=== PATIENT | female | born 1935 | race Caucasian/White ===

== ENCOUNTER 2017-07-09 08:18 | Emergency (ER) | payer MEDICARE ==
[~2017-07-09] VITALS: Ht 157.5 cm; Wt 46.3 kg
[~2017-07-09 08:18] MED LIST: ALBUTEROL S2.5 MG/.5; ALBUTEROL S2.5 MG/.5 IN; ALTACE1.25 MG OR; AMOXICILLIN/CL875 MG PO; ANTIVERT12.5 MG PO; AUGMENTIN875TAB PO; BROVANA15 MCG IN; CARAFATE1 GM PO; CIPRO500 MG PO; CYANOCOBALAM1000 MCG IJ; CYANOCOBALAM1000 MCG IM; DOCUSATE CAL240 MG PO; FLONASE NASAL50 MCG; FLORASTOR250 M1 PO; FLUARIX QUADRIV1 IN1 IM; FLUZONE SPLT1 M1 IM; FOLIC ACID1 MG PO; FOSAMAX70 MG OR; GABAPENTIN100 MG PO; IPRATROPIU0.5 MG/3 M NEB; KEFLEX500 MG PO; LEVOTHYROXIN100 MCG PO; LEVOTHYROXIN75 MCG PO; LEVOTHYROXIN88 MC1 PO; LEVOXYL100 MCG OR; LEVOXYL88 MCG OR; MEDDOSEPAK PO; MIRALAX3350 NF PO; MULTI-VIT/FE PO; OMEPRAZOLE20 MG PO; PREDNISONE10 MG PO; PRILOSEC40 MG PO; PROAIR HFA IN; QVAR80 MCG IN; ROCEPHIN 1 GM1 GM IM; SERTRALINE50 MG PO; SOLU-MEDROL125 MG IM; SYMBICORT INH; SYMBICORT1 AE1 IN; SYMBICORT1 AER IN; SYNTHROID88 MCG OR; XANAX0.25 MG PO; ZITHROMAX500 MG PO; ZOLOFT20 MG/ML OR; ZPAK OR; ZPAK PO; ZYRTEC10 MG PO
[2017-07-09] MEDS ORDERED: PERCOCET1 TA4 PO (08:55)
[2017-07-09] MEDS ORDERED: LONSURF PO (08:57)
[2017-07-09 09:36] LABS: ANION GAP 14 (6-22 (CALC)); BILIRUBIN, TOTAL 1.1 mg/dL (0.0-1.4); BUN 16 mg/dL (8-23); BUN/CREATININE RATIO 24 (12-20 (CALC)); CARBON DIOXIDE 25 mmol/l (22-30); CHLORIDE 104 mmol/l (95-108); CREATININE 0.7 mg/dL (0.5-1.0); GFR > 60 ML/MIN (>=60 (CALC)); GFR FOR AFR.AMER. > 60 ML/MIN (>=60 (CALC)); LIPASE 25 u/l (23-300); SGOT/AST 45 u/l (9-36); SGPT/ALT 34 u/l (11-66); SODIUM 139 mmol/l (137-146)
[2017-07-09 09:37] LABS: ALBUMIN 2.9 g/dL (3.2-5.0); ALKALINE PHOSPHATASE 402 u/l (38-126); POTASSIUM 3.7 mmol/l (3.5-5.1); TOTAL PROTEIN 5.6 g/dL (6.3-8.2)
[2017-07-09 09:50] LABS: HEMATOCRIT 31.7 % (37.0-47.0); HEMOGLOBIN 10.5 g/dl (12.0-16.0); IMMATURE GRANULOCYTES 5.6 % (0.0-1.0); MEAN CELL VOLUME 107.8 fL CALC (80.0-100.0); MEAN CORPUSCULAR HGB 35.7 pG CALC (26.0-32.0); MEAN CORPUSCULAR HGB CONC 33.1 g/L CALC (32.0-36.0); NEUT# 0.25 thou/uL (2.00-7.15); RED BLOOD COUNT 2.94 mill/uL (4.20-5.60); RED CELL DISTRI WIDTH 13.8 % (11.5-15.5)
[2017-07-09] MEDS ORDERED: FENTANYL25 MCG/HR TD (10:21)
[2017-07-09 11:02] LABS: URINE BILIRUBIN - DIPSTICK SMALL (NEGATIVE); URINE BLOOD DIPSTICK NEGATIVE (NEGATIVE); URINE CLARITY CLEAR; URINE COLOR YELLOW; URINE GLUCOSE - DIPSTICK NEGATIVE (NEGATIVE); URINE KETONE 15 mg/dL (NEGATIVE); URINE LEUK ESTERASE NEGATIVE (NEGATIVE); URINE NITRITE - DIPSTICK NEGATIVE (Negative); URINE PH 5.5 (4.5-8.0); URINE PROTEIN - DIPSTICK TRACE mg/dL (NEG-TRACE); URINE SPECIFIC GRAVITY 1.025
[2017-07-09] MEDS ORDERED: TORADOL PO (13:26)
[2017-07-09 13:51] VITALS: BP 145/67
== END 2017-07-09 14:15 | disposition home or self-care (01) ==
LOC: ED 08:18
PROVIDERS: Emergency Medicine
PROC: 0T9B70Z Drainage of Bladder with Drainage Device, Via Natural or Artificial Opening (ICD-10-PCS; principal; 2017-07-09)
DX: R10.11 Right upper quadrant pain (principal); D72.819 Decreased white blood cell count, unspecified; I10 Essential (primary) hypertension; C18.9 Malignant neoplasm of colon, unspecified; C78.7 Secondary malignant neoplasm of liver and intrahepatic bile duct; Z98.0 Intestinal bypass and anastomosis status; Z79.899 Other long term (current) drug therapy
CPT/HCPCS: Q9967